=== PATIENT | female | born 1995 | race African-American/Black ===

== ENCOUNTER 2016-04-18 10:20 | Emergency (ER) | payer SELFPAY ==
[~2016-04-18] VITALS: Ht 175.3 cm; Wt 50.0 kg
[2016-04-18 10:22] VITALS: BP 112/62; PULSE 81; RESP 12; TEMP 98; O2SAT 99
[2016-04-18] MEDS ORDERED: IBUP800T23 PO (11:01)
--- NOTE | 2016-04-18 11:01 | PD ---
HPI Chief Complaint: Pain: Acute or Chronic Time Seen by Provider: 10:56 Travel History International Travel<30 days: No Contact w/Intl Traveler<30days: No Traveled to known affect area: No History of Present Illness HPI 20-year-old female presents to the emergency Department with complaint of right ear pain and right facial pain after falling on Saturday night and hitting the right side of her face on a couch. She denies loss of consciousness. Denies drainage from the ear. Denies change in vision. Reports facial swelling did occur that has subsided. Reports bruising to her right ear that has gotten better. Denies lightheadedness, headache. Reports dizziness when she bends forward. Denies nausea, vomiting. Has taken aspirin with no relief of symptoms ; last took aspirin on Saturday. Has also used ice to the area with improvement in swelling and pain. Denies neck pain. Denies back pain. No known allergies. Does not have primary care provider. No other modifying factors or associated signs and symptoms. PFSH Past Medical History ?: Not Social History Tobacco Use: No Allergies-Medications (Allergen,Severity, Reaction): Coded Allergies: No Known Allergies (Unverified , 04/18/16) Reported Meds & Prescriptions Reported Meds & Active Scripts Active Ibuprofen 800 Mg Tab 800 Mg PO Q6HR PRN Review of Systems Except as stated in HPI: all other systems reviewed are Neg Physical Exam Narrative GENERAL: Well-nourished, well-developed female patient, in no acute distress SKIN: Warm and dry. HEAD: Atraumatic. Normocephalic. No facial edema or erythema. Tenderness on palpation just above the right ear tragus; the right ears without erythema, edema; there is a very small 1 cm ecchymotic area just above the right tragus; the area is tender to palpation. No facial droop noted. Tongue midline. EYES: Pupils equal and round at 3 mm with brisk reaction. PERRLA. EOMI. No scleral icterus. No injection or drainage. ENT: Mucosa pink and moist. No erythema or exudates. No uvular edema. No uvular , palatal, or tonsillar deviation. Airway patent. Nasal turbinates appear normal without nasal blood, purulent drainage or septal hematoma. EARS: Bilateral pinnae and external canals appear within normal limits. Bilateral tympanic membranes without erythema, dullness or perforation; without hemotympanum bilaterally; no perforation bilaterally NECK: Trachea midline. Moving freely. CARDIOVASCULAR: Regular rate and rhythm. No murmur appreciated. RESPIRATORY: No accessory muscle use. Breath sounds clear and equal bilaterally. GASTROINTESTINAL: Abdomen soft, non-tender, nondistended. Positive bowel sounds. No hepato-splenomegaly, or palpable masses. No guarding. MUSCULOSKELETAL: No obvious deformities. No clubbing. No cyanosis. No edema. NEUROLOGICAL: Awake and alert. Oriented 3. No obvious cranial nerve deficits. Motor grossly within normal limits. Normal speech. No midline drift. No ataxia. PSYCHIATRIC: Appropriate mood and affect; insight and judgment normal. Data Data Last Documented VS Vital Signs Date Time Temp Pulse Resp B/P Pulse Ox O2 Delivery O2 Flow Rate FiO2 04/18/16 10:22 98.0 81 12 112/62 99 Room Air Orders Ibuprofen (Motrin) (04/18/16 11:15) MDM Medical Decision Making Medical Screen Exam Complete: Yes Emergency Medical Condition: Yes Medical Record Reviewed: Yes Differential Diagnosis Facial contusion, fall, ruptured tympanic membrane Narrative Course 20-year-old female physical exam consistent with right facial contusion after a mechanical fall on Saturday. The patient did not lose consciousness. The patient admits to hitting their head, but denies loss of consciousness. Denies nausea, vomiting. On physical exam the patient is without raccoon eyes, dutton signs, rhinorrhea, or hemotympanum. I do not suspect open or depressed skull fracture, and the patient has no signs of basilar skull fracture. [place] Head Injury Rule suggests a head CT is not necessary for this patient and clears the patient for head injury without imaging. The right tympanic membrane is intact and without perforation. Neuro exam is unremarkable. Ibuprofen administered in the ER. Patient is medically cleared and stable for discharge. Discussed reasons to return to the emergency department. Instructed patient to follow up with primary care provider. Patient agrees with treatment plan. The patients vital signs are stable and the patient is stable for outpatient follow-up and treatment. Patient discharged home, stable and in no acute distress. Diagnosis Primary Impression: Fall Qualified Code: W19.XXXA - Fall, initial encounter Additional Impression: Facial contusion Qualified Code: S00.83XA - Facial contusion, initial encounter Referrals: Primary Care Physician Patient Instructions: Facial Contusion (ED), Fall Prevention (ED), General Instructions Departure Forms: Tests/Procedures, Work Release Special Instructions: May return to physical training on Saturday04/20/2016, at own discretion. If unable to perform physical training on saturday, please allow to return 04/23/2016. Additional Instructions: Ibuprofen or Tylenol instructed as needed for pain and inflammation Ice to affected area as needed to reduce pain and inflammation Follow-up with primary care provider Return to the emergency department immediately, particularly with symptoms as discussed Med/Other Pt SpecificInfo: Prescription(s) given Scripts Ibuprofen 800 Mg Qmw130 Mg PO Q6HR PRN (PAIN) #30 TAB Ref 0 Prov:Amaya Carrasquillo 04/18/16 Disposition: 01 DISCHARGE HOME Condition: Stable Amaya Carrasquillo Apr 18, 2016 11:01
[2016-04-18] MEDS ORDERED: IBUPROFEN 800 MG TAB PO ONE (11:15)
== END 2016-04-18 11:16 | disposition home or self-care (01) ==
LOC: NEPB 10:20
DX: S00.83XA Contusion of other part of head, initial encounter (principal); W18.30XA Fall on same level, unspecified, initial encounter; Y92.009 Unspecified place in unspecified non-institutional (private) residence as the place of occurrence of the external cause
CPT/HCPCS: 99282

== ENCOUNTER 2016-06-18 23:40 | Emergency (ER) | payer BC ==
[~2016-06-18] VITALS: Ht 175.3 cm; Wt 52.0 kg
[~2016-06-18 23:40] MED LIST: IBUP800T23 PO
[2016-06-18 23:42] VITALS: BP 114/73; PULSE 106; RESP 16; TEMP 102.9; O2SAT 99
--- NOTE | 2016-06-19 00:01 | PD ---
HPI Chief Complaint: Cold / Flu Symptoms Time Seen by Provider: 23:55 Travel History International Travel<30 days: No Contact w/Intl Traveler<30days: No Traveled to known affect area: No History of Present Illness HPI 20-year-old black female presents emergency Department with a 24-hour history of subjective fever and chills, headache and a sore throat, runny nose, cough, congestion, myalgias, arthralgias and general malaise. She does feel nauseous but has not been vomiting. She's had a decreased appetite. She denies any abdominal pain, diarrhea, urinary symptoms. Symptoms are moderate. [facility] Past Medical History Medical History: Denies Significant Hx Tetanus Vaccination: < 5 Years ?: Not LMP: 05/28/16 Past Surgical History Surgical History: No Previous Surgery Social History Alcohol Use: No Tobacco Use: No Allergies-Medications (Allergen,Severity, Reaction): Coded Allergies: No Known Allergies (Unverified , 06/18/16) Reported Meds & Prescriptions Reported Meds & Active Scripts Active Ibuprofen 800 Mg Tab 800 Mg PO Q6HR PRN Review of Systems Except as stated in HPI: all other systems reviewed are Neg Physical Exam Narrative GENERAL: Well-developed, well-nourished in no acute distress. Nontoxic appearing. HEAD: Normocephalic, atraumatic. EYES: Pupils equal round and reactive. Extraocular motions intact. No scleral icterus. No injection or drainage. ENT: TMs clear without erythema. The external auditory canals clear. Nose: clear . Posterior pharynx is pink and moist. No tonsillar edema or exudate. Uvula midline. Airway patent. NECK: Trachea midline.Supple, nontender, moves head freely. No central bony tenderness or spasm. CARDIOVASCULAR: Regular rate and rhythm without murmurs, gallops, or rubs. RESPIRATORY: Clear to auscultation. Breath sounds equal bilaterally. No wheezes , rales, or rhonchi. GASTROINTESTINAL: Abdomen soft, non-tender, nondistended. No hepato-splenomegaly , or palpable masses. No guarding. EXTREMITIES: No clubbing, cyanosis, or edema. No joint tenderness, effusion, or edema noted. BACK: Nontender without deformity or crepitance. No flank tenderness. Data Data Last Documented VS Vital Signs Date Time Temp Pulse Resp B/P Pulse Ox O2 Delivery O2 Flow Rate FiO2 4/10/17 23:42 102.9 106 16 114/73 99 Room Air MDM Medical Decision Making Medical Screen Exam Complete: Yes Emergency Medical Condition: Yes Medical Record Reviewed: Yes Differential Diagnosis MDM: High Differential diagnoses: Pneumonia, bronchitis, URI, asthma, RAD, legionnaire's disease, SARS, ARDS, influenza, bronchiolitis, RSV,PE,CHF Narrative Course This is influenza-like illness. Patient is given 600 mg of ibuprofen. Zofran 4 mg by mouth. Diagnosis Primary Impression: Influenza-like illness Patient Instructions: General Instructions Departure Forms: School Release, Please excuse from school until (free text option): No school 3-5 days Tests/Procedures Additional Instructions: Rest. Increase fluids. Tylenol and Advil. Robitussin-DM. Zofran for nausea. Followup with your DrKarla in one week. Return to the ER for any problems. Med/Other Pt SpecificInfo: Prescription(s) given Disposition: DISCHARGE HOME Condition: Stable Ty De Paz Jun 19, 2016 00:01
[2016-06-19] MEDS ORDERED: ZOFR4TAB PO (00:02)
[2016-06-19] MEDS ORDERED: IBUPROFEN 600 MG TAB PO ONE (00:15)
[2016-06-19] MEDS ORDERED: ONDANSETRON ODT 4 MG TAB PO ONE (00:15)
== END 2016-06-19 00:10 | disposition home or self-care (01) ==
LOC: NEPK 23:40
DX: J11.1 Influenza due to unidentified influenza virus with other respiratory manifestations (principal)
CPT/HCPCS: 99283